=== PATIENT | male | born 2000 ===

== ENCOUNTER 2025-01-24 18:48 | Emergency (ER) | payer MEDICAID, SELFPAY ==
[2025-01-24 19:14] VITALS: BP 136/79; PULSE 85; RESP 18; TEMP 36.8; O2SAT 97; BMI 35.8
--- NOTE | 2025-01-24 19:17 | ED.GENADULT ---
HPI - General Adult General Chief complaint: Abdominal Pain Stated complaint: Abd pain, blood in stool Time Seen by Provider: 01/24/25 22:06 Source: patient Mode of arrival: ambulatory Limitations: no limitations History of Present Illness ED Provider: HPI narrative: Patient otherwise healthy been having watery diarrhea since yesterday with small amount of bright red blood in the stool with nausea no vomiting no fever no chills no significant abdominal pain does have some abdominal cramping patient has a food outside few days ago and since then symptoms started no other family member sick Related Data Previous Rx's ?Medication ?Instructions ?Recorded dicyclomine 20 mg tablet 20 mg PO QID PRN abdominal pain 01/24/25 #14 tabs Allergies Allergy/AdvReac Type Severity Reaction Status Date / Time No Known Allergies Allergy Verified 01/24/25 19:17 Review of Systems Review of Systems: Yes all other systems are reviewed and are negative [facility] Social History Social History Smoked in Last 30 Days: No Use of substances other than those prescribed or required for medical reasons: No Advance Directives: No Advance Directives Information Provided: No Physical Exam ED Vital Signs: Vital Signs - 24 hr 01/24/25 19:14 01/24/25 21:56 01/24/25 23:01 Temperature 98.3 F 98.5 F 98.5 F Pulse Rate 85 77 77 Respiratory Rate 18 16 16 Blood Pressure 136/79 131/79 131/79 Pulse Oximetry 97 98 98 Oxygen Delivery Method Room Air Room Air Room Air BMI result Body Mass Index 35.8 Appearance: Alert. Oriented X3. No acute distress. Eyes: PERRLA, No Nystagmus ENT: Pharynx normal. Oral Mucosa moist Neck: Normal inspection. Neck supple. CVS: Normal heart rate and rhythm. Pulses normal. Respiratory: No respiratory distress. Equal air entry bilateral, no wheezing/rales/rhonchi Abdomen: Soft and nontender. Bowel sounds are present, no mass palpable, no CVA tenderness rectal; no hemorrhoids palpable no blood on the finger Skin: Skin warm and dry. Normal skin color. Normal skin turgor. Extremities: No lower extremity edema. No calf tenderness Neuro: Oriented X 3. No motor deficit. No sensory deficit.No cerebellar signs , cranial nerves II-XII intact Course Course Course Narrative: RME: 24-year-old male presents to ED for abdominal pain and blood in stool. Patient denies any recent trauma fever or chills. Abdomen benign labs ordered Medications Administered Discontinued Medications Generic Name Dose Route Start Last Admin Trade Name Candy PRN Reason Stop Dose Admin Dicyclomine HCl 20 mg 01/24/25 22:14 01/24/25 22:28 Dicyclomine Hcl 10 Mg Capsule PO 01/24/25 22:15 20 mg ONCE ONE Administration Medical Decision Making Medical Decision Making [facility] Narrative: Patient is stable labs mild gastroenteritis had only 1 bowel movement today but had about 10 bowel movements yesterday likely enteritis food induced patient advised to follow up with PCP Lab Data MDM Lab Attestation statement: I reviewed the patient's lab results. 01/24/25 19:56 01/24/25 19:56 Labs: Lab Results 01/24/25 Range/Units 19:56 WBC 9.0 (4.8-10.8) X10*3/uL RBC 5.30 (4.60-5.80) X10*6/uL Hgb 15.0 (14.0-18.0) g/dl Hct 43.9 (42.0-52.0) % MCV 82.8 (80.0-98.0) fL MCH 28.3 (27.0-33.0) pg MCHC 34.2 (31.0-36.0) g/dl RDW 12.5 (11.0-16.0) % Plt Count 156 L (160-400) X10*3/uL MPV 10.2 (9.4-12.4) fL Immature Gran % (Auto) 0.3 (0.0-0.4) % Neut % (Auto) 72.2 (45-73) % Lymph % (Auto) 16.6 L (20-40) % Spencer % (Auto) 9.4 (2-11) % Eos % (Auto) 1.2 (0-4) % Baso % (Auto) 0.3 (0-2) % Lymph # (Auto) 1.5 (1.2-4.9) X10*3/uL Spencer # (Auto) 0.9 (0.1-1.2) X10*3/uL Eos # (Auto) 0.1 (0.0-0.4) X10*3/uL Baso # (Auto) 0.0 (0.0-0.2) X10*3/uL Abs Immat Gran (auto) 0.03 (0.00-0.03) X10*3/uL Absolute Neuts (auto) 6.5 (2.0-8.3) x10*3/uL Absolute Nucleated RBC 0.000 (0.0-0.012) X10*3/uL Nucleated RBC % (auto) 0.0 (0.0-0.2) /100WBC Sodium 140 (135-145) mmol/L Potassium 5.0 (3.3-5.1) mmol/L Chloride 105 (96-108) mmol/L Carbon Dioxide 26 (22-29) mmol/L Anion Gap 14 (12-20) BUN 14 (9-16) mg/dL Creatinine 1.08 (0.5-1.4) mg/dL Estim Creat Clear Calc 153.2 Estimated GFR > 60 Random Glucose 88 (60-115) mg/dL Calcium 9.4 (8.4-10.2) mg/dL Total Bilirubin 0.3 (0.0-1.0) mg/dL AST 32 (5-37) U/L ALT 25 (0-40) U/L Alkaline Phosphatase 85 (39-117) U/L Total Protein 7.3 (6.5-8.0) g/dL Albumin 4.5 (3.5-5.0) g/dL Lipase 17 (8-78) U/L Discharge Plan Discharge Clinical Impression: Gastroenteritis Patient Disposition: Home, Self-Care Instructions: Enteritis (ED) Additional Instructions: Drink plenty of fluids Your symptoms likely from inflammation of the bowel Medication for abdominal cramps and pain as prescribed Follow with your PCP if not better Prescriptions: New dicyclomine 20 mg tablet 20 mg PO QID PRN (Reason: abdominal pain) Qty: 14 0RF Interventions: ED Discharge Assessment Last Done: 01/24/25 23:01 Discharge Date/Time: 01/24/25 23:02 Print Language: Faroese
[2025-01-24 20:00] LABS: MANUAL DIFF FLAG NO
[2025-01-24 20:09] LABS: Hematocrit 43.9 % (42.0-52.0); Hemoglobin 15.0 g/dl (14.0-18.0); Imm Gran Abs Auto 0.03 X10*3/uL (0.00-0.03); Imm Gran Pct Auto 0.3 % (0.0-0.4); Lymphocytes Absolute Auto 1.5 X10*3/uL (1.2-4.9); Mean Corpuscular HGB Conc 34.2 g/dl (31.0-36.0); Mean Corpuscular Hemoglobin 28.3 pg (27.0-33.0); Mean Corpuscular Volume 82.8 fL (80.0-98.0); NRBC Abs Auto 0.000 X10*3/uL (0.0-0.012); NRBC Pct Auto 0.0 /100WBC (0.0-0.2); Platelet Count 156 X10*3/uL (160-400); Red Blood Count 5.30 X10*6/uL (4.60-5.80); White Blood Count 9.0 X10*3/uL (4.8-10.8)
[2025-01-24 20:16] LABS: Alanine Aminotransferase 25 U/L (0-40); Albumin Level 4.5 g/dL (3.5-5.0); Alkaline Phosphatase 85 U/L (39-117); Anion Gap 14 (12-20); Aspartate Amino Transferase 32 U/L (5-37); Blood Urea Nitrogen 14 mg/dL (9-16); Calcium 9.4 mg/dL (8.4-10.2); Carbon Dioxide 26 mmol/L (22-29); Chloride 105 mmol/L (96-108); Creatinine Clr Calc Pharmacy 153.2; Estimated Glomerular Filt Rate > 60; Lipase 17 U/L (8-78); Potassium 5.0 mmol/L (3.3-5.1); Sodium 140 mmol/L (135-145); Total Protein 7.3 g/dL (6.5-8.0)
[2025-01-24 21:56] VITALS: BP 131/79; PULSE 77; RESP 16; TEMP 36.9; O2SAT 98
--- NOTE | 2025-01-24 22:30 | PC.NURSE ---
Rectal examination completed, medicated per sep, reviewed discharge instructions with pt. pt verbalized understanding, no sign of distress upon discharge.
[2025-01-24 23:01] VITALS: BP 131/79; PULSE 77; RESP 16; TEMP 36.9; O2SAT 98
== END 2025-01-24 23:02 | disposition home or self-care (01) ==
LOC: HO.ED 22:23
PROVIDERS: Physician Assistant; Emergency Provider Internal Medicine; PCP Dentist General Practice
DX: K52.9 Noninfective gastroenteritis and colitis, unspecified (principal)
CPT/HCPCS: 36415; 80053; 83690; 85025; 99283; 99284